=== PATIENT | male | born 1930 | race Caucasian/White ===

== ENCOUNTER 2016-04-21 09:34 | Emergency (ER) | payer OTHER, MEDICARE ==
--- NOTE | 2016-04-21 09:36 | EDPHY ---
H & P Time Seen by Provider: 04/21/16 09:36 HPI/ROS: CHIEF COMPLAINT: Back pain HISTORY OF PRESENT ILLNESS: This 85-year-old man has severe dementia and has chronic back pain. He did get to see a chiropractor yesterday but then this morning had such severe left-sided low back pain that he was able to sit up or get out of bed so is brought to the hospital by EMS. He received 100 mcg of IV fentanyl in route and now peers comfortable unless he tries to move. Pain currently is minimal at rest but severe if he tries to sit up or move at all. It does not radiate. It is not associated with weakness or numbness in his legs. It is unknown if he had a fall. REVIEW OF SYSTEMS: No known fever or urinary symptoms or trouble breathing or skin rash A comprehensive 10 point review of systems is otherwise negative but further history and complete review of systems is difficult to obtain because of the patient's dementia. PAST MEDICAL HISTORY: History and physical dated 05/03/2014 personally reviewed by myself. Includes dementia, GERD, glaucoma, hypertension, hypothyroid, prostate cancer. Social history: Nonsmoker, lives at the [facility], here with his . General Appearance: Alert and follows commands, unable to give full sentence answers which is his baseline. Eyes: No scleral icterus. ENT, Mouth: Normal mucous membranes. Respiratory: Normal respiratory effort, breath sounds equal, lungs are clear to auscultation. Cardiovascular: Regular rate and rhythm. Gastrointestinal: Abdomen is soft and non tender. Neurological: Alert and follows commands. Face symmetric, normal movement and sensation in all extremities. He is able to lift each extremity off the bed independently and has downgoing toes bilaterally. Patellar reflexes 1+ and symmetric. Skin: Warm and dry, no rashes. Specifically no laceration bruising or zoster over the area of pain. Musculoskeletal: Patient has some upper lumbar spine tenderness to palpation but no visible deformity on any extremity. Psychiatric: Not agitated. Emergency Department course/MDM: Evaluation and plan for x-rays discussed with the who is here with the patient. He is unable to sit up in the bed at the time of my initial evaluation because of pain. 1035: X-ray results discussed with the . Plan to try and treat the patient 's pain here in the emergency department, disposition depends on whether he can get up and walk again. [place] the [place] and does not use any kind of assistive device such as a cane or a walker. Oral ibuprofen 600, acetaminophen 325, norco x 1. 1230: Ambulatory in ED. Ok for discharge with PCP followup. Had a long discussed with the patient's about symptomatic treatment as he does not have lower extremity neurologic deficit. Emphasized that we do not have a definitive diagnosis; although with him being ambulatory and negative imaging for fracture, the most reasonable thing is to treat his symptoms and see how he does over the short term. Smoking Status: Never smoked Constitutional: Initial Vital Signs Temperature (C) 36.5 C 04/21/16 09:47 Heart Rate 49 L 04/21/16 09:47 Respiratory Rate 16 04/21/16 09:47 Blood Pressure 149/77 H 04/21/16 09:47 O2 Sat (%) 95 04/21/16 09:47 O2 Delivery Mode Room Air Allergies/Adverse Reactions: Penicillins Allergy (Verified 05/03/14 09:10) Home Medications: Medication Instructions Recorded Acetaminophen [Tylenol ES 500 mg 500 mg PO BID 05/03/14 (*)] Aspirin [Aspirin 81mg (*)] 81 mg PO HS 05/03/14 Atorvastatin Calcium [Lipitor 40 40 mg PO HS 05/03/14 mg (*)] Beta-Carotene(A) W-C & E/Min 1 tab PO DAILY 05/03/14 [Ocuvite] Donepezil HCl [Aricept] 10 mg PO HS 05/03/14 Escitalopram Oxalate [Lexapro 10 5 mg PO HS 05/03/14 MG] Levothyroxine [Synthroid 50 mcg 50 mcg PO DAILY06 05/03/14 (*)] Lisinopril [Zestril 20 mg (*)] 20 mg PO DAILY 05/03/14 Lmfol Ca/Acetyl/Mb12/Algal Oil 1 each PO DAILY 05/03/14 [Cerefolin Nac Caplet] Memantine HCl [Namenda 10 mg] 20 mg PO HS 05/03/14 Mirtazapine [Remeron] 15 mg PO HS 05/03/14 Pantoprazole Sodium [Protonix 40mg 40 mg PO DAILY 05/03/14 (*)] flavoxATE HCL [Urispas] 100 mg PO BID 05/03/14 guaiFENesin [Mucinex 600 MG (*)] 600 mg PO HS 05/03/14 Hydrocodone/APAP 5/325 [[place] 1 - 2 tab PO Q4-6PRN PRN #11 tab 04/21/16 5/325] Medical Decision Making Differential Diagnosis: Differential diagnosis considered for back pain including but not limited to muscular pain, herniated disc, spine fracture, intra-abdominal causes and urinary tract infection. - Data Points Medications Given: Discontinued Medications Acetaminophen (Tylenol) 325 mg PO EDNOW ONE Stop: 04/21/16 10:39 Last Admin: 04/21/16 11:07 Dose: 325 mg Acetaminophen/Hydrocodone Bitart ([place] 5/325) 1 tab PO EDNOW ONE Stop: 04/21/16 10:39 Last Admin: 04/21/16 11:07 Dose: 1 tab Ibuprofen (Motrin) 600 mg PO EDNOW ONE Stop: 04/21/16 10:40 Last Admin: 04/21/16 11:08 Dose: 600 mg Departure - Departure Disposition: Home, Routine, Self-Care Clinical Impression: Back pain Condition: Good Instructions: Acute Low Back Pain (ED) Additional Instructions: Activity as tolerated. Pain medication as needed. Return for worsening or severe pain, weakness or numbness in your legs or feet, incontinence. Follow-up with your primary care physician later this week or early next week. Referrals: Patient,NotPresent [Unknown] - As per Instructions Karina Carroll MOVER HELPER [Certified Nurse Practioner] - As per Instructions Prescriptions: Hydrocodone/APAP 5/325 [[place] 5/325] 1 - 2 tab PO Q4-6PRN PRN #11 tab PRN Reason: For Pain
[2016-04-21 09:58] VITALS: TEMP 97.7
[2016-04-21] MEDS ORDERED: HYDROCODONE/APAP 5/325 TAB PO ONE (10:38)
[2016-04-21] MEDS ORDERED: ACETAMINOPHEN 325 MG TAB PO ONE (10:38)
[2016-04-21] MEDS ORDERED: IBUPROFEN 600 MG TAB PO ONE (10:39)
--- NOTE | 2016-04-21 11:58 | DX ---
Lumbar spine AP and lateral 0932 hours. History: Severe back pain after going to chiropractor. Findings: Comparison the prior study from October 15, 2004. Vertebral body heights are relatively well-maintained. Mild anterior wedging seen at T11 and T12 segm ents was present on the prior study and probably represents congenital wedging. No acute fractures ar e seen. There is stable about 2 to 3 mm of posterior subluxation of L2 on L3 with mild increase in po sterior subluxation measuring about 3 mm of L3 on L4 as well as increase in anterior subluxation of L 4 and L5 measuring about 5 mm. This is probably related to underlying facet hypertrophy at these leve ls. Moderate intervertebral disk space narrowing has progressed slightly at T12-L1 along with progression of moderate to marked disk space narrowing at L1-L2 and at L3-L4 since the prior study. Marked disk space narrowing is stable at L2-L3. There are no lytic or sclerotic osseous lesions. Numerous surgica l clips are seen in the lower pelvis. Impression: 1. Progression of degenerative disk disease at T12-L1, L1-L2, and at L3-L4 since the prior study. 2. Stable minimal subluxation at L2-L3 with increase in subluxation of L3-L4 and at L4-L5 is detailed above related to progression of facet hypertrophy. 3. Stable minimal anterior wedging of T11 and T12 segments. 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 4. Stable marked disk space narrowing at L2-L3 with minimal subluxation.
--- NOTE | 2016-04-21 12:04 | DX ---
Pelvis x-ray supine 0930 hours. History: Severe pain after chiropractic visit. Findings: Hip joint spaces are normal. No fractures are seen about the pelvis. Numerous clips are not ed in the lower pelvis. The SI joints and symphysis appear to be normal. There are no lytic or sclero tic osseous lesions. Soft tissues are unremarkable. Impression: 1. No acute osseous abnormality seen about the pelvis.
--- NOTE | 2016-04-21 12:07 | DX ---
Thoracic spine series 2 views 0939 hours. History: Severe back pain after chiropractic visit. Findings: Comparison to prior chest x-ray study from May 03, 2014 and thoracic spine series study from October 15, 2004. Vertebral body heights appear to be normal. There are no subluxations. There is stable moderate to ma rked intervertebral disk space narrowing mid to lower thoracic spine with hypertrophic osteophytes. M inimal anterior wedging at T11 and T12 segments was better seen on the lumbar spine series. There are no lytic or sclerotic osseous lesions appreciated. Very mild dextroscoliosis is noted of the midthor acic spine. Impression: Stable degenerative disk disease mid to lower thoracic spine with disk space narrowing an d hypertrophic osteophytes.
[2016-04-21 12:13] VITALS: BP 129/63; O2SAT 96
[2016-04-21 12:49] VITALS: PULSE 82; RESP 18
== END 2016-04-21 12:49 | disposition home or self-care (01) ==
LOC: EDUNIT#
DX: M54.5 Low back pain (principal); I10 Essential (primary) hypertension; Z79.82 Long term (current) use of aspirin; Z85.46 Personal history of malignant neoplasm of prostate